=== PATIENT | female | born 1960 | race Hispanic/Latino ===

== ENCOUNTER 2017-06-27 08:38 | Outpatient (CLI) | payer MEDICARE ==
--- NOTE | 2017-06-27 11:20 | Cat Scan Report ---
CT paranasal sinuses without contrast: History sinusitis presenting with abnormal smell. Transverse images were obtained through the sinuses with coronal and sagittal 2-D reformatted images. The right maxillary sinus is totally opaque. There is mucoperiosteal tissue extends medially occluding the ostiomeatal complex with opacities in the right ethmoid sinuses. There is a minimal area of mucoperiosteal thickening in a posterior left ethmoid cell. No fluid present. No bone destruction. The remaining sinuses appear unremarkable. There is a mild rightward deviation of the nasal septum. The inferior turbinate is slightly larger than the right however the nasal passages are widely patent. Impressions: Right maxillary and ethmoid sinusitis of indeterminate chronicity. No evidence of acute inflammation.
== END 2017-06-27 08:39 | disposition home or self-care (01) ==
LOC: SPVIMAG 08:38
DX: J32.2 Chronic ethmoidal sinusitis (principal); J32.0 Chronic maxillary sinusitis; J34.2 Deviated nasal septum; R43.1 Parosmia
CPT/HCPCS: 70486

== ENCOUNTER 2017-07-19 13:33 | Outpatient (CLI) | payer MEDICARE ==
--- NOTE | 2017-07-21 11:06 | Magnetic Resonance Report ---
MRI LEFT ARM WITHOUT AND WITH CONTRAST: 07/19/17 CLINICAL: Left arm pain. TECHNIQUE: Sagittal, coronal and axial T1 and T2 fat-sat sequences plus sagittal, coronal and axial postcontrast T1 fat-sat sequences on a 1.5 Albertina magnet. 15.0 cc of Multihance was injected intravenously for the contrast portion of the exam and consent was obtained prior to the administration of contrast. FINDINGS: An oval nonenhancing intramuscular mass of the triceps muscle measures 4.7 cm craniocaudal dimension by 1.2 cm AP dimension by 4.1 cm transverse dimension. It has a few non-enhancing septae within it and follows fat signal on all sequences. The mass is centered approximately 10 cm proximal to the elbow joint. The imaged portions of the humerus are normal with no marrow lesion. No fracture. The rest of the muscles have normal signal. The vascular structures are normal. No soft tissue edema and no fluid collection. IMPRESSION: A 4.7 x 1.2 x 4.1 cm intramuscular mass of the triceps muscle. Signal characteristics suggest benign lipoma. However, a well-differentiated liposarcoma cannot be excluded. Therefore, consider excision.
== END 2017-07-19 13:34 | disposition home or self-care (01) ==
LOC: SPVIMAG 13:33
PROVIDERS: ATTEND Family Medicine
DX: M62.89 Other specified disorders of muscle (principal); M79.602 Pain in left arm
CPT/HCPCS: 73220; A9577